=== PATIENT | female | born 1960 | race Two or more races ===

== ENCOUNTER 2024-12-28 21:01 | Inpatient (IN) | payer OTHER ==
[~2024-12-28] VITALS: Ht 170.2 cm; Wt 113.4 kg
[2024-12-28] MEDS ORDERED: 0.9 % SODIUM CHLORIDE 1,000 ML IV SCH (21:15)
[2024-12-28] MEDS ORDERED: HORIZANT300 MG (21:17)
[2024-12-28] MEDS ORDERED: SIMVASTATIN5 MG (21:17)
[2024-12-28] MEDS ORDERED: LOSARTAN POTASS25 MG (21:17)
--- NOTE | 2024-12-28 21:18 | NUR ---
SE RECIBE PACIENTE ALERTA Y ORIENTADO X3, EN [facility] [place] POR PANCREATITIS. SE MONITOREAN VS Y SE UBICA.
[2024-12-28] MEDS ORDERED: CIPROFLOXACIN IN 5 % DEXTROSE 200 ML IV SCH (21:24)
[2024-12-28] MEDS ORDERED: GABAPENTIN 300 MG CAPSULE PO SCH (21:25)
[2024-12-28] MEDS ORDERED: ONDANSETRON HCL 4 MG in 0.9 % SODIUM CHLORIDE 50 ML IV PRN (21:30)
[2024-12-28] MEDS ORDERED: MORPHINE SULFATE 4 MG/ML CARTRIDGE IV PRN (21:30)
[2024-12-28] MEDS ORDERED: ACETAMINOPHEN 500 MG GEL..CAP PO PRN (21:30)
[2024-12-29 00:56] LABS: BASO % 0.3 % (0.1-1.2); EOS # 0.16 (0.04-0.54); EOS % 1.1 % (0.7-7.0); LYMPH # 1.05 (1.18-3.74); LYMPH % 6.9 % (19.3-53.1); MEAN PLATELET VOLUME 9.40 fl (9.4-12.4); MONO # 1.03 (0.24-0.82); MONO % 6.8 % (4.7-12.5); NEUT # 12.83 (1.56-6.13); NEUT % 84.4 % (34.0-71.1); RED CELL DISTRIBUTION WIDTH 16.8 % (11.6-14.4)
[2024-12-29 01:04] LABS: ERYTHROCYTE SEDIMENTATION RATE > 130 mm/hr (0-30)
[2024-12-29 01:17] LABS: INR 1.16
[2024-12-29 01:21] LABS: ALT/SGPT 155.0 U/L (12-78); AST/SGOT 102.0 U/L (15-37); BILIRUBIN TOTAL 7.67 mg/dL (0.3-1.2); BILIRUBIN,CONJUGATED 5.64 mg/dL (0.0-0.2)
[2024-12-29 01:22] LABS: ALT/SGPT 155.0 U/L (12-78); AST/SGOT 103.0 U/L (15-37); BILIRUBIN TOTAL 7.71 mg/dL (0.3-1.2); BUN CREA RATIO 31.0 (7.0-25.0); CREATININE SERUM 0.45 mg/dL (0.55-1.02); GFR 140.72; GLOBULINA 3.2 G/DL (2.4-3.5); GLUCOSE FASTING 89.0 mg/dL (65-100); OSMOLALITY SERUM 283.0 MOSM/KG (275-295)
[2024-12-29 01:32] LABS: URINE APPEARANCE Cloudy; URINE BILIRRUBIN Large (NEGATIVE); URINE BLOOD Small; URINE COLOR Dark Yellow; URINE GLUCOSE Negative (NEGATIVE); URINE LEUKOCYTE Small; URINE NITRATE Positive; URINE UROBILINOGEN 1.0 E.U./dl
[2024-12-29 01:32] LABS: COVID-19 AG NEGATIVE (NEGATIVE)
[2024-12-29 01:35] LABS: URINE BACTERIA 2953.2 uL (0.0-1933); URINE CAST 1.75 uL (0.0-1.40); URINE EPITHELIAL CELLS 73.6 uL (0.0-38.8); URINE RBC 164.2 uL (0.0-20.8); URINE WBC 24.6 uL (0.0-23.2)
[2024-12-29 02:14] LABS: URINE KETONE 80 (NEGATIVE); URINE PROTEIN 100 (NEGATIVE)
[2024-12-29 02:51] VITALS: BP 132/78; O2SAT 97
[2024-12-29 04:00] VITALS: BP 130/65; O2SAT 95
[2024-12-29] MEDS ORDERED: FAMOTIDINE/PF 20 MG/2 ML VIAL ONE (08:59)
[2024-12-29] MEDS ORDERED: GABAPENTIN 800 MG TABLET PO SCH (09:00)
[2024-12-29] MEDS ORDERED: FAMOTIDINE/PF 20 MG in 0.9 % SODIUM CHLORIDE 8 ML IV PUSH SCH (09:00)
[2024-12-29] MEDS ORDERED: LOSARTAN POTASSIUM 100 MG TABLET PO SCH (09:00)
[2024-12-29 10:29] VITALS: BP 103/70; O2SAT 95
[2024-12-29 16:26] VITALS: BP 111/71; O2SAT 95
[2024-12-30 03:44] VITALS: BP 96/60; O2SAT 95
[2024-12-30 06:33] LABS: BASO % 0.3 % (0.1-1.2); EOS # 0.39 (0.04-0.54); EOS % 3.2 % (0.7-7.0); LYMPH # 1.23 (1.18-3.74); LYMPH % 10.0 % (19.3-53.1); MEAN PLATELET VOLUME 10.90 fl (9.4-12.4); MONO # 0.75 (0.24-0.82); MONO % 6.1 % (4.7-12.5); NEUT # 9.79 (1.56-6.13); NEUT % 79.7 % (34.0-71.1); RED CELL DISTRIBUTION WIDTH 16.7 % (11.6-14.4)
[2024-12-30 09:48] VITALS: BP 105/68; O2SAT 95
[2024-12-30 17:42] VITALS: BP 118/66; O2SAT 96
[2024-12-31 00:53] VITALS: BP 122/76; O2SAT 98
[2024-12-31] MEDS ORDERED: FAMOTIDINE/PF 20 MG/2 ML VIAL ONE (08:25)
[2024-12-31 08:33] VITALS: BP 111/73
[2024-12-31] MEDS ORDERED: VANCOMYCIN HCL 5 MG/ML REDILUIDO IV SCH (13:00)
[2024-12-31 19:11] VITALS: BP 134/71; O2SAT 98
[2025-01-01 01:47] VITALS: BP 104/68; O2SAT 94
[2025-01-01 08:13] VITALS: BP 118/71
[2025-01-01 08:56] VITALS: O2SAT 95
[2025-01-01 13:25] VITALS: O2SAT 87
[2025-01-01 16:37] VITALS: BP 118/75; O2SAT 94
[2025-01-02 02:00] VITALS: BP 161/72; O2SAT 95
[2025-01-02 08:55] LABS: ALT/SGPT 59.0 U/L (12-78); AST/SGOT 49.0 U/L (15-37); BILIRUBIN TOTAL 1.84 mg/dL (0.3-1.2); BUN CREA RATIO 23.0 (7.0-25.0); CREATININE SERUM 0.35 mg/dL (0.55-1.02); GFR 188.07; GLOBULINA 3.5 G/DL (2.4-3.5); GLUCOSE FASTING 64.0 mg/dL (65-100); OSMOLALITY SERUM 283.0 MOSM/KG (275-295)
[2025-01-02 09:03] LABS: BASO % 0.6 % (0.1-1.2); EOS # 0.29 (0.04-0.54); EOS % 3.1 % (0.7-7.0); LYMPH # 1.68 (1.18-3.74); LYMPH % 18.1 % (19.3-53.1); MEAN PLATELET VOLUME 9.70 fl (9.4-12.4); MONO # 0.70 (0.24-0.82); MONO % 7.5 % (4.7-12.5); NEUT # 6.51 (1.56-6.13); NEUT % 70.1 % (34.0-71.1); RED CELL DISTRIBUTION WIDTH 16.1 % (11.6-14.4)
[2025-01-02 09:13] VITALS: BP 105/54
[2025-01-02 16:27] VITALS: BP 119/75; O2SAT 98
[2025-01-02] MEDS ORDERED: LINEZOLID 600 MG TABLET PO SCH (17:00)
[2025-01-03 03:02] VITALS: BP 125/75; O2SAT 96
[2025-01-03 08:57] VITALS: BP 112/70
[2025-01-03 16:27] VITALS: BP 123/78
[2025-01-03] MEDS ORDERED: MICONAZOLE NITRATE 92 GM CREAM.GM. TOP SCH (19:29)
[2025-01-04 02:25] VITALS: BP 116/73; O2SAT 98
[2025-01-04 07:00] VITALS: BP 124/81; O2SAT 94
[2025-01-04 08:14] LABS: BASO % 0.7 % (0.1-1.2); EOS # 0.28 (0.04-0.54); EOS % 2.8 % (0.7-7.0); LYMPH # 2.68 (1.18-3.74); LYMPH % 27.1 % (19.3-53.1); MEAN PLATELET VOLUME 9.60 fl (9.4-12.4); MONO # 0.80 (0.24-0.82); MONO % 8.1 % (4.7-12.5); NEUT # 5.99 (1.56-6.13); NEUT % 60.5 % (34.0-71.1); RED CELL DISTRIBUTION WIDTH 15.5 % (11.6-14.4)
[2025-01-04 08:58] LABS: BUN CREA RATIO 17.0 (7.0-25.0); CREATININE SERUM 0.41 mg/dL (0.55-1.02); GFR 156.68; GLUCOSE FASTING 98.0 mg/dL (65-100); OSMOLALITY SERUM 279.0 MOSM/KG (275-295)
[2025-01-04] MEDS ORDERED: NYSTATIN 15 GM TUBE TOP SCH (09:00)
[2025-01-04] MEDS ORDERED: BUPIVACAINE HCL 30 ML VIAL IJ ONE (17:30)
[2025-01-04] MEDS ORDERED: MORPHINE SULFATE 4 MG/ML VIAL IV ONE (19:30)
[2025-01-04 22:15] VITALS: BP 114/70
[2025-01-05 01:57] VITALS: BP 113/73; O2SAT 98
[2025-01-05] MEDS ORDERED: SUCRALFATE 1 G TABLET PO SCH (09:00)
[2025-01-05 09:08] VITALS: BP 98/64; O2SAT 97
[2025-01-05 18:00] VITALS: BP 158/81
[2025-01-06 01:38] VITALS: BP 95/63; O2SAT 95
[2025-01-06 09:05] VITALS: BP 185/69; O2SAT 98
== END 2025-01-06 12:20 | disposition home or self-care (01) | DRG 417 ==
LOC: ER 21:01 → MEDJ 21:44
PROVIDERS: General Practice; Internal Medicine Infectious Disease; Surgery; ADMIT Student in an Organized Health Care Education/Training Program; ATTEND Student in an Organized Health Care Education/Training Program
PROC: BW40ZZZ Ultrasonography of Abdomen (ICD-10-PCS; 2024-12-28)
PROC: BF37ZZZ Magnetic Resonance Imaging (MRI) of Pancreas (ICD-10-PCS; 2024-12-28)
PROC: B24BYZZ Ultrasonography of Heart with Aorta using Other Contrast (ICD-10-PCS; 2025-01-01)
PROC: 4A12X4Z Monitoring of Cardiac Electrical Activity, External Approach (ICD-10-PCS; 2025-01-01)
PROC: B54MZZZ Ultrasonography of Right Upper Extremity Veins (ICD-10-PCS; 2025-01-02)
PROC: 02HV33Z Insertion of Infusion Device into Superior Vena Cava, Percutaneous Approach (ICD-10-PCS; 2025-01-02)
PROC: 0FJD8ZZ Inspection of Pancreatic Duct, Via Natural or Artificial Opening Endoscopic (ICD-10-PCS; 2025-01-02)
PROC: BF532ZZ Other Imaging of Gallbladder and Bile Ducts using Fluorescing Agent (ICD-10-PCS; 2025-01-04)
PROC: 0FT44ZZ Resection of Gallbladder, Percutaneous Endoscopic Approach (ICD-10-PCS; principal; 2025-01-04 19:30)
DX: K80.10 Calculus of gallbladder with chronic cholecystitis without obstruction (principal); K85.10 Biliary acute pancreatitis without necrosis or infection; K83.09 Other cholangitis; I10 Essential (primary) hypertension